=== PATIENT | female | born 2000 | race Caucasian/White ===

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

== ENCOUNTER 2020-10-24 17:52 | Emergency (ER) | payer OTHER ==
[~2020-10-24] VITALS: Ht 170.1 cm; Wt 62.1 kg
[2020-10-24 18:00] VITALS: BP 124/85
[2020-10-24 19:01] LABS: BASOPHILS % (AUTO) 0 % (0-10); EOSINOPHILS % (AUTO) 0 % (0-10); HEMATOCRIT 38 % (35-52); HEMOGLOBIN 12.1 g/dL (11.5-16.0); LYMPHOCYTES # (AUTO) 1.4 10^3/uL (1.0-4.0); LYMPHOCYTES % (AUTO) 12 % (12-44); MEAN CORPUSCULAR HEMOGLOBIN 27 pg (25-34); MEAN CORPUSCULAR HGB CONC 32 g/dL (32-36); MEAN CORPUSCULAR VOLUME 84 fL (80-99); MEAN PLATELET VOLUME 12.2 fL (9.0-12.2); MONOCYTES # (AUTO) 0.7 10^3/uL (0.0-1.0); MONOCYTES % (AUTO) 6 % (0-12); NEUTROPHILS % (AUTO) 82 % (42-75); PLATELET COUNT 191 10^3/uL (130-400); WHITE BLOOD COUNT 12.1 10^3/uL (4.3-11.0)
--- NOTE | 2020-10-24 19:11 | ED EENT ---
History of Present Illness General Chief Complaint: Oral/Throat Problems Stated Complaint: THROAT PAIN / ABSESS Nursing Triage Note: PT AMB TO TRIAGE WITH COMPLAINT SWOLLEN/SORE THROAT. STATES WENT TO DR BERRY OFFICE YESTERDAY AND GIVEN PEPCID, CEFDINIR, PHENERGAN W/CODEINE, AND PREDNISONE. STATES SHE HAD ULTRASOUND AND BLOODWOORK DONE TODAY. Source: patient Exam Limitations: no limitations History of Present Illness Date Seen by Provider: Oct 24, 2020 Time Seen by Provider: 18:47 Initial Comments 20-year-old female who presents to the emergency room with complaints of swollen sore throat. She was seen at Dr. Trotter's office yesterday and given Pepcid cefdinir and Phenergan with codeine and started on oral prednisone. She had blood work and ultrasound done today. Ultrasound was negative for abscess but did show lymphadenopathy. She denies any fevers. Timing/Duration: yesterday Location: throat Prearrival Treatment: over the counter meds, prescription meds Associated Symptoms: sore throat Allergies and Home Medications Allergies Coded Allergies: No Known Drug Allergies (Verified Allergy, Unknown, 03/17/09) Patient Home Medication List Home Medication List Reviewed: Yes Review of Systems Review of Systems Constitutional: see HPI; No chills, No fever Throat: see HPI, pain All Other Systems Reviewed Negative Unless Noted: Yes Past Wdbxxpm-Xnlfuo-Iflrun Hx Past Med/Social Hx: Reviewed Nursing Past Med/Soc Hx Patient Social History Alcohol Use: Occasionally Uses Drug of Choice: WEED Smoking Status: Never a Smoker Recent Infectious Disease Expo: No Recent Hopitalizations: No Immunizations Up To Date Tetanus Booster (TDap): Unknown PED Vaccines UTD: Yes Past Medical History Surgeries: No Respiratory: No Cardiac: No Neurological: No Reproductive Disorders: No Gastrointestinal: Yes (HAS HAD 2 OTHER "FLARE UPS" RECENTLY WITH ABD PAIN, N/V IN PAST 2 MONTHS) Musculoskeletal: No Endocrine: No Psychosocial: No Blood Disorders: No Family Medical History Reviewed Nursing Family Hx Physical Exam Vital Signs Vital Signs - First Documented 10/24/20 18:00 Temp 36.4 Pulse 104 Resp 20 B/P (MAP) 124/85 (98) Pulse Ox 97 O2 Delivery Room Air Height, Weight, BMI Height: '" Weight: lbs. oz. kg; 21.00 BMI Method: General Appearance: WD/WN Mouth/Throat: tongue swollen, tonsillar exudate (White exudate on tonsils) Cardiovascular: normal peripheral pulses, regular rate, rhythm, no edema, no gallop, no JVD, no murmur Respiratory: chest non-tender, lungs clear, normal breath sounds, no respiratory distress, no accessory muscle use Neurologic/Psychiatric: alert, normal mood/affect, oriented x 3 Skin: normal color, warm/dry Progress/Results/Core Measures Results/Orders Lab Results Laboratory Tests Test 10/24/20 18:14 10/24/20 18:55 Range/Units Group A Streptococcus Screen NEGATIVE NEGATIVE White Blood Count 12.1 H 4.3-11.0 10^3/uL Red Blood Count 4.57 3.80-5.11 10^6/uL Hemoglobin 12.1 11.5-16.0 g/dL Hematocrit 38 35-52 % Mean Corpuscular Volume 84 80-99 fL Mean Corpuscular Hemoglobin 27 25-34 pg Mean Corpuscular Hemoglobin Concent 32 32-36 g/dL Red Cell Distribution Width 13.8 10.0-14.5 % Platelet Count 191 130-400 10^3/uL Mean Platelet Volume 12.2 9.0-12.2 fL Immature Granulocyte % (Auto) 0 % Neutrophils (%) (Auto) 82 H 42-75 % Lymphocytes (%) (Auto) 12 12-44 % Monocytes (%) (Auto) 6 0-12 % Eosinophils (%) (Auto) 0 0-10 % Basophils (%) (Auto) 0 0-10 % Neutrophils # (Auto) 10.0 H 1.8-7.8 10^3/uL Lymphocytes # (Auto) 1.4 1.0-4.0 10^3/uL Monocytes # (Auto) 0.7 0.0-1.0 10^3/uL Eosinophils # (Auto) 0.0 0.0-0.3 10^3/uL Basophils # (Auto) 0.0 0.0-0.1 10^3/uL Immature Granulocyte # (Auto) 0.1 0.0-0.1 10^3/uL Sodium Level 137 135-145 MMOL/L Potassium Level 3.6 3.6-5.0 MMOL/L Chloride Level 103 98-107 MMOL/L Carbon Dioxide Level 22 21-32 MMOL/L Anion Gap 12 5-14 MMOL/L Blood Urea Nitrogen 8 7-18 MG/DL Creatinine 0.71 0.60-1.30 MG/DL Estimat Glomerular Filtration Rate > 60 BUN/Creatinine Ratio 11 Glucose Level 101 70-105 MG/DL Calcium Level 9.3 8.5-10.1 MG/DL Corrected Calcium 8.9 8.5-10.1 MG/DL Total Bilirubin 0.3 0.1-1.0 MG/DL Aspartate Amino Transf (AST/SGOT) 15 5-34 U/L Alanine Aminotransferase (ALT/SGPT) 15 0-55 U/L Alkaline Phosphatase 49 40-136 U/L Total Protein 7.5 6.4-8.2 GM/DL Albumin 4.5 3.2-4.5 GM/DL Monoscreen NEGATIVE NEGATIVE My Orders Orders - LENO NGUYEN Rapid Strep A Screen (10/24/20 18:16) Monotest (10/24/20 18:44) Cbc With Automated Diff (10/24/20 18:48) Comprehensive Metabolic Panel (10/24/20 18:48) Vital Signs/I&O 10/24/20 18:00 Temp 36.4 Pulse 104 Resp 20 B/P (MAP) 124/85 (98) Pulse Ox 97 O2 Delivery Room Air Blood Pressure Mean: 98 Departure Impression Primary Impression: Pharyngitis Disposition: 01 HOME, SELF-CARE Condition: Stable/Unchanged Departure-Patient Inst. Decision time for Depature: 19:46 Referrals: KITA TROTTER DO (PCP/Family) Primary Care Physician Patient Instructions: Strep Throat (DC) Add. Discharge Instructions: Continue your medications as previously prescribed. You may use ibuprofen and Tylenol alternating every 4 hours. You may use [id number] throat lozenges and sprays for comfort. Follow-up with Dr. Trotter's office within 1 week for recheck. Return back to the emergency room for worsening symptoms or concerns as needed. All discharge instructions reviewed with patient and/or family. Voiced understanding. Work/School Note: Work Release Form Date Seen in the Emergency Department: Oct 24, 2020 Return to Work: Oct 27, 2020 Restrictions: No Restrictions LENO NGUYEN Oct 24, 2020 19:10
[2020-10-24 19:13] LABS: ALBUMIN 4.5 GM/DL (3.2-4.5); CHLORIDE 103 MMOL/L (98-107); POTASSIUM 3.6 MMOL/L (3.6-5.0); SODIUM 137 MMOL/L (135-145)
[2020-10-24 19:14] LABS: CALCIUM 9.3 MG/DL (8.5-10.1)
[2020-10-24 19:15] LABS: GLUCOSE 101 MG/DL (70-105); TOTAL PROTEIN 7.5 GM/DL (6.4-8.2)
[2020-10-24 19:16] LABS: CARBON DIOXIDE 22 MMOL/L (21-32)
[2020-10-24 19:17] LABS: BILIRUBIN,TOTAL 0.3 MG/DL (0.1-1.0)
[2020-10-24 19:18] LABS: ALKALINE PHOSPHATASE 49 U/L (40-136)
[2020-10-24 19:19] LABS: CREATININE SERUM 0.71 MG/DL (0.60-1.30); GFR ESTIMATED > 60
[2020-10-24 19:20] LABS: BUN/CREATININE RATIO 11
[2020-10-24 19:22] LABS: ALANINE AMINOTRANSFERASE 15 U/L (0-55)
== END 2020-10-24 20:09 | disposition home or self-care (01) ==
LOC: EDUNIT# 17:52 → ER 17:56
DX: J02.9 Acute pharyngitis, unspecified (principal)
CPT/HCPCS: 36415; 80053; 85025; 86308; 87430; 99285

== ENCOUNTER → 2020-10-24 | Outpatient (CLI) | payer OTHER ==
--- NOTE | 2020-10-24 12:47 | Diagnostic Imaging Report ---
INDICATION: Left neck pain and difficulty swallowing. Sonographic interrogation of the left neck just inferior to the left submandibular gland demonstrates multiple prominent lymph nodes. The largest measures 2.2 x 1.8 x 0.9 cm. No fluid collection is identified. IMPRESSION: Left neck lymphadenopathy, perhaps reactive. Continued follow-up is recommended to confirm stability. No abscess is detected. Dictated by: Dictated on workstation # [id number]
== END ==
LOC: RAD 12:00
PROVIDERS: ATTEND Internal Medicine
DX: J03.90 Acute tonsillitis, unspecified (principal); R59.0 Localized enlarged lymph nodes
CPT/HCPCS: 76536